=== PATIENT | female | born 1940 | race Two or more races ===

== ENCOUNTER 2017-10-18 17:23 | Inpatient (IN) | payer MEDICARE, MEDICAID ==
[~2017-10-18] VITALS: Ht 157.5 cm; Wt 52.6 kg
--- NOTE | 2017-10-18 16:30 | NUR ---
RECIEVED REPORT FROM FRED RICE NURSE. DWAYNE RECEIVED REPORT FROM ADONAY SALCEDO AT [facility]
--- NOTE | 2017-10-18 17:56 | NUR ---
PATIENT ARRIVED TO UNIT FROM AMBULANCE VIA A GORNEY AND 2 home health clinical supervisor.
--- NOTE | 2017-10-18 18:05 | NUR ---
PATIENT PLACED IN ROOM 325-1
[2017-10-18 18:15] VITALS: BP 129/61
[2017-10-18] MEDS ORDERED: PNEUMOCOCCAL 23-VAL P-SAC VAC 0.5 ML VIAL IM ONE (18:30)
--- NOTE | 2017-10-18 18:41 | NUR ---
PATIENT REFUSING PNEUMONIA VACCINE. DR LANDEROS MADE AWARE
--- NOTE | 2017-10-18 18:45 | NUR ---
RN ADMITTING / CLOSING NOTES PATIENT ARRIVED TO UNIT AT 1756. PLACED IN ROOM 325-1. DR LANDEROS MADE AWARE OF PATIENT ADMITTED TO UNIT. ADMITTING ORDERS RECEIVED. NO SIGNS AND SYMPTOMS OF DISTRESS. 95% ON ROOM AIR. VITAL SIGNS ARE STABLE. REFUSING VACCINATION. SON AT BEDSIDE HELPED WITH HISTORY AND TRANSLATION. BED IN LOW POSITION, LOCKED AND TWO SIDE RAILS ARE UP. CALL LIGHT WITHIN REACH FOR SAFETY. URINALYSIS, ECHO, EKG AND BC ORDERED AND PENDING. WILL ENDORSE TO ONCOLOGIST NURSE
[2017-10-18] MEDS: IV NS 0.9% 1,000 ML IV PRN (18:51)
[2017-10-18] MEDS: ALBUTEROL FS 2.5 MG/0.5 ML VIAL.NEB NEB SCH (19:15)
--- NOTE | 2017-10-18 19:15 | NUR ---
MS RN NOTES RT AT BEDSIDE ADMINISTERING BREATHING TX SCHEDULED
[2017-10-18] MEDS: IPRATROPIUM NEB FS 0.5 MG/2.5 ML AMPUL.NEB NEB SCH (19:16)
--- NOTE | 2017-10-18 19:30 | NUR ---
MS RN NOTES RECEIVED ON BED A/O X3,BREATHING NON LABORED,FAMILY MEMBER AT BEDSIDE.WITH IVF NS 75ML/HR RATE INFUSING VIA IV PUMP ON RIGHT AC #20.WILL CONTINUE TO MONITOR STATUS.CALL LIGHT IN REACH,NEEDS ANTICIPATED.
[2017-10-18 20:00] VITALS: BP 110/55
--- NOTE | 2017-10-18 20:00 | NUR ---
MS RN NOTES STARTED ON ROCEPHIN 1GM IVPB ORDERED.BLOOD CULTURE ALREADY DRAWN.
[2017-10-18] MEDS: CEFTRIAXONE 1 G in IV D5W 50 ML IV SCH (20:07)
[2017-10-18 20:25] LABS: THYROID STIMULATING HORMONE 0.383 uIU/mL (0.358-3.74)
[2017-10-18 20:31] LABS: ALANINE AMINOTRANSFERASE 47 U/L (12-78); ALKALINE PHOSPHATASE 79 U/L (46-116); ASPARTATE AMINOTRANSFERASE 41 U/L (15-37); B-TYPE NATRIURETIC PEPTIDE 207 PG/ML (0-125); BILIRUBIN,TOTAL 0.2 mg/dL (0.2-1.0); CALCIUM, SERUM 8.5 mg/dL (8.5-10.1); CARBON DIOXIDE 28 mmol/L (21-32); CHLORIDE 106 mmol/L (98-107); CREATININE 0.7 mg/dL (0.6-1.3); GLUCOSE 140 mg/dL (74-106); PHOSPHORUS 2.6 mg/dL (2.5-4.9); POTASSIUM 3.8 mmol/L (3.5-5.1); SODIUM SERUM 138 mmol/L (136-145); TOTAL PROTEIN, SERUM 6.4 g/dL (6.4-8.2); UREA NITROGEN, BLOOD 11 mg/dL (7-18)
[2017-10-18] MEDS: AZITHROMYCIN 500 MG in IV D5W 250 ML IV SCH (20:43)
[2017-10-18 20:46] LABS: CALCIUM, SERUM 8.5 mg/dL (8.5-10.1); CARBON DIOXIDE 27 mmol/L (21-32); CHLORIDE 106 mmol/L (98-107); CREATININE 0.7 mg/dL (0.6-1.3); GLUCOSE 140 mg/dL (74-106); POTASSIUM 3.9 mmol/L (3.5-5.1); SODIUM SERUM 138 mmol/L (136-145); UREA NITROGEN, BLOOD 11 mg/dL (7-18)
[2017-10-18 20:54] VITALS: BP 110/55
[2017-10-18] MEDS ORDERED: ACETAMINOPHEN 325 MG TABLET ONE (20:58)
[2017-10-18] MEDS: ACETAMINOPHEN 325 MG TABLET PO PRN (21:00)
[2017-10-18] MEDS ORDERED: IV NS 0.9% 1,000 ML BAG IV ONE (21:30)
[2017-10-18 22:05] LABS: BASOPHILS % (AUTO) 0.4 % (0.0-2.0); EOSINOPHILS % (AUTO) 0.1 % (0.0-6.0); HEMATOCRIT 34 % (33-45); HEMOGLOBIN 11.4 g/dL (11.5-14.8); LYMPHOCYTES # (AUTO) 1.1 /CMM (0.8-4.8); LYMPHOCYTES % (AUTO) 33.3 % (20.0-44.0); MEAN CORPUSCULAR HEMOGLOBIN 31 PG (26.0-33.0); MEAN CORPUSCULAR HGB CONC 34 g/dl (31.0-36.0); MEAN CORPUSCULAR VOLUME 92 fL (82-100); MONOCYTES # (AUTO) 0.4 /CMM (0.1-1.30); NEUTROPHILS # (AUTO) 1.8 /CMM (1.8-8.9); NEUTROPHILS % (AUTO) 54.2 % (43.0-81.0); PLATELET COUNT (AUTO) 145 /CMM (150-450); RDW COEFFICIENT OF VARIATION 13.5 (11.5-15.0); RED BLOOD CELL COUNT(AUTO) 3.68 MIL/uL (4.0-5.2); WHITE BLOOD COUNT (AUTO) 3.2 K/uL (4.3-11.0)
[2017-10-18] MEDS ORDERED: methylPREDNISolone SOD SUCC 40 MG/ML VIAL ONE (23:17)
[2017-10-18] MEDS: methylPREDNISolone SOD SUCC 125 MG/2ML VIAL IV SCH (23:38)
--- NOTE | 2017-10-18 23:45 | NUR ---
CATALYST IMPREGNATOR NOTES STARTED ON SOLU-MEDROL 40MG IV ORDERED
[2017-10-19] MEDS: IPRATROPIUM NEB FS 0.5 MG/2.5 ML AMPUL.NEB NEB SCH ×4 (01:30→19:57)
[2017-10-19] MEDS: ALBUTEROL FS 2.5 MG/0.5 ML VIAL.NEB NEB SCH ×4 (01:30→19:57)
[2017-10-19] MEDS: IV NS 0.9% 1,000 ML IV PRN (03:44)
[2017-10-19 04:00] VITALS: BP 113/56
[2017-10-19] MEDS ORDERED: methylPREDNISolone SOD SUCC 40 MG/ML VIAL ONE (05:34)
[2017-10-19] MEDS: methylPREDNISolone SOD SUCC 125 MG/2ML VIAL IV SCH ×3 (05:51→17:08)
--- NOTE | 2017-10-19 06:40 | NUR ---
LAST MODEL MAKER NOTES TELE SR 62 ON THE MONITOR.SLEPT WITH INTERVALS.FLUID CHALLENGE 1 LITER FOR SEPSIS TOLERATED WELL.REGULAR IV RATE IN PROGRESS.STILL NEED URINE SAMPLE FOR U/A.NO FALL,NO INJURY,CALL LIGHT IN REACH,NEEDS ATTENDED.WILL ENDORSE TO DAY NURSE FOR EMI.
[2017-10-19 07:09] LABS: BASOPHILS % (AUTO) 0.2 % (0.0-2.0); EOSINOPHILS % (AUTO) 0.1 % (0.0-6.0); HEMATOCRIT 35 % (33-45); HEMOGLOBIN 11.6 g/dL (11.5-14.8); LYMPHOCYTES # (AUTO) 0.5 /CMM (0.8-4.8); MEAN CORPUSCULAR HEMOGLOBIN 31 PG (26.0-33.0); MEAN CORPUSCULAR HGB CONC 34 g/dl (31.0-36.0); MEAN CORPUSCULAR VOLUME 92 fL (82-100); MONOCYTES # (AUTO) 0.1 /CMM (0.1-1.30); MONOCYTES % (AUTO) 4.6 % (2.0-12.0); NEUTROPHILS # (AUTO) 1.3 /CMM (1.8-8.9); NEUTROPHILS % (AUTO) 68.1 % (43.0-81.0); PLATELET COUNT (AUTO) 142 /CMM (150-450); RDW COEFFICIENT OF VARIATION 13.8 (11.5-15.0); RED BLOOD CELL COUNT(AUTO) 3.79 MIL/uL (4.0-5.2)
--- NOTE | 2017-10-19 07:20 | NUR ---
RN OPEN NOTES RECEIVED REPORT FROM PRESSER MACHINE NURSE. PATIENT IS IN BED, AWAKE. PATIENT IS ALERT AND ORIENTED TO NAME, PLACE AND TIME. FARSI SPEAKING. LITTLE TURKISH. NO SIGNS AND SYMPTOMS OF DISTRESS. BED IN LOW POSITION, LOCKED AND TWO SIDE RAILS ARE UP. CALL LIGHT WITHIN REACH FOR SAFETY. WILL CONTINUE TO ASSESS AND MONITOR PATIENT THROUGH OUT MY SHIFT
[2017-10-19 07:30] LABS: CALCIUM, SERUM 8.6 mg/dL (8.5-10.1); CARBON DIOXIDE 25 mmol/L (21-32); CHLORIDE 108 mmol/L (98-107); CREATININE 0.7 mg/dL (0.6-1.3); GLUCOSE 134 mg/dL (74-106); MAGNESIUM 2.2 mg/dL (1.8-2.4); PHOSPHORUS 3.7 mg/dL (2.5-4.9); POTASSIUM 4.2 mmol/L (3.5-5.1); SODIUM SERUM 140 mmol/L (136-145); UREA NITROGEN, BLOOD 9 mg/dL (7-18)
[2017-10-19 07:38] LABS: ALBUMIN 2.9 g/dL (3.4-5.0); BILIRUBIN,TOTAL 0.2 mg/dL (0.2-1.0); TOTAL PROTEIN, SERUM 6.5 g/dL (6.4-8.2)
[2017-10-19 07:48] LABS: WHITE BLOOD COUNT (AUTO) 1.9 K/uL (4.3-11.0)
--- NOTE | 2017-10-19 07:52 | NUR ---
CRITICAL LAB VALUE REPORTED BY LAB. WBC OF 1.9. PATIENT PLACED ON NEUTROPENIC ISOLATION AND DR LANDEROS NOTIFIED
[2017-10-19 08:00] VITALS: BP 118/50
--- NOTE | 2017-10-19 08:10 | NUR ---
PATIENT PLACED ON DROPLET PRECAUTION DUE TO 1.9 WBC
[2017-10-19] MEDS: ENOXAPARIN SODIUM 40 MG/0.4 ML DISP.SYRIN SQ SCH (09:08)
[2017-10-19 09:25] LABS: BAND % (MANUAL) 5 % (0.0-5.0); LYMPHOCYTES % (MANUAL) 16 % (16-48); MONOCYTES % (MANUAL) 2 % (0-11.0); NEUTROPHILS % (MANUAL) 77 (42-76)
[2017-10-19 10:21] LABS: APPEARANCE,URINE CLEAR (CLEAR); BILIRUBIN,URINE NEGATIVE (NEGATIVE); BLOOD, URINE NEGATIVE Ery/uL (NEGATIVE); COLOR,URINE YELLOW (YELLOW); KETONES,URINE TRACE (NEGATIVE); LEUKOCYTE ESTERASE ,URINE NEGATIVE (NEGATIVE); NITRITE, URINE NEGATIVE (NEGATIVE); PH,URINE 5.5 (5.0-8.0); PROTEIN,URINE NEGATIVE (NEGATIVE); UGLUCOSE NEGATIVE (NEGATIVE); UROBILINOGEN,URINE 0.2 EU/dL (0.2)
[2017-10-19 10:31] LABS: BACTERIA,URINE Rare /HPF (None Seen); RBC,URINE 0-2 /HPF (0-2); SQUAMOUS EPITHELIAL CELL,UR Rare /HPF (None Seen); WBC,URINE 0-2 /HPF (0-3)
[2017-10-19] MEDS ORDERED: OSELTAMIVIR PHOSPHATE 75 MG CAPSULE PO SCH (17:00)
[2017-10-19] MEDS: LACTOBACILLUS RHAMNOSUS GG 1 EACH CAP.SPRINK PO SCH (17:08)
--- NOTE | 2017-10-19 17:15 | NUR ---
DR RAMON AT BEDSIDE
--- NOTE | 2017-10-19 18:43 | NUR ---
RN CLOSING NOTES PATIENT IS IN BED. ALERT AND ORIENTED TO NAME, PLACE AND TIME. FARSI PEAKER. NO SIGNS AND SYMPTOMS OF DISTRESS. DENIED PAIN. IV SITE IS INTACT AND PATENT. ALL NURSING CARE ANTICIPATED AND MET. PATIENT KEPT SAFE AND CLEAN. BED IN LOW POSITION, LOCKED AND TWO SIDE RAILS ARE UP. CALL LIGHT WITHIN REACH FOR SAFETY. PENDING RAPID INFLUENZA RESULT PRIOR TO ADMINISTER TAMIFLU. WILL ENDORSE TO OIL DEVELOPER NURSE
--- NOTE | 2017-10-19 18:55 | NUR ---
PHARMACY CALLED. RAPID INFLUENZA RESULTED. TAMIFLU HELD DUE TO NEGATIVE RESULT
[2017-10-19] MEDS: CEFTRIAXONE 1 G in IV D5W 50 ML IV SCH (19:40)
[2017-10-19 20:00] VITALS: BP 118/63
--- NOTE | 2017-10-19 20:00 | NUR ---
RN NOTES PATIENT UP ON CHAIR, ALERT AND ORIENTED X3, FARSI SPEAKING, UNDERSTANDS LITTLE [place]. NO SOB, NO RESPIRATORY DISTRESS, TOLERATING ROOM AIR, SPO2 95%, DENIES ANY PAIN AT THIS TIME, NO REVERSE ISOLATION SECONDARY TO NEUTROPENIA, CONTINENT OF BOWEL AND BLADDER, ABLE TO AMBULATE INDEPENDENTLY TO THE TOILET. NEEDS ATTENDED, CALL LIGHT WITHIN REACH.
[2017-10-19] MEDS: AZITHROMYCIN 500 MG in IV D5W 250 ML IV SCH (20:11)
[2017-10-19 23:01] LABS: ABG BASE EXCESS -1.3 mmol/L; ABG OXYGEN SATURATION 95.1 % (92.0-98.5); ABG PCO2 36.4 mmHg (35.0-45.0); ABG PH 7.415 (7.350-7.450); AaDO2 32.1 mmHg; COHb 0.3 % (0.5-1.5); MetHb 0.6 % (0.0-1.5); O2Hb 94.2 % (94.0-97.0); SITE, ABG Left Brachial; VENT MODE, BG RA
[2017-10-20] MEDS: methylPREDNISolone SOD SUCC 125 MG/2ML VIAL IV SCH ×4 (00:21→17:10)
[2017-10-20] MEDS: IPRATROPIUM NEB FS 0.5 MG/2.5 ML AMPUL.NEB NEB SCH ×2 (01:30→08:55)
[2017-10-20] MEDS: ALBUTEROL FS 2.5 MG/0.5 ML VIAL.NEB NEB SCH ×2 (01:30→08:56)
[2017-10-20] MEDS: IV NS 0.9% 1,000 ML IV PRN ×2 (05:07→21:06)
--- NOTE | 2017-10-20 06:44 | NUR ---
RN NOTES PATIENT IN BED, ALERT AND AWAKE, NO SOB, NO DISTRESS, COMPLIANT WITH MEDICATION. STEADY GAIT, ALL NEEDS ATTENDED, CALL LIGHT WITHIN REACH.
--- NOTE | 2017-10-20 07:45 | NUR ---
RN OPENING NOTES RECEIVED PT. A/O X 3, PT IS IN BED RESTING. NO S/S OF SOB. PT HAS C/O MILD PAIN 2/10, REQUESTING PRN TYLENOL. PT IS ON RA, O2SAT WNL. PER PAROLE DIRECTOR REPORT PT NOT DETECTED INFLUENZA A OR B, HOWEVER TAMIFLU IS ORDERED. IV ACCESS LOCATED ON RIGHT AC 20 G INFUSING NS AT 75 ML/HR. SAFETY MEASURES IN PLACE, CALL LIGHT WITHIN REACH. WILL CONTINUE TO MONITOR.
[2017-10-20 08:00] VITALS: BP 104/60
[2017-10-20] MEDS: LACTOBACILLUS RHAMNOSUS GG 1 EACH CAP.SPRINK PO SCH ×2 (08:38→17:10)
[2017-10-20] MEDS: ACETAMINOPHEN 325 MG TABLET PO PRN (08:38)
[2017-10-20] MEDS: ENOXAPARIN SODIUM 40 MG/0.4 ML DISP.SYRIN SQ SCH (08:42)
[2017-10-20] MEDS: OSELTAMIVIR PHOSPHATE 75 MG CAPSULE PO SCH (09:38)
[2017-10-20 16:00] VITALS: BP 111/56
--- NOTE | 2017-10-20 18:39 | NUR ---
RN CLOSING NOTES PT IS IN BED RESTING. NO S/S OF SOB OR RESPIRATORY DISTRESS. NO C/O PAIN AT THIS TIME. ALL PT NEEDS ANTICIPATED AND MET. SAFETY MEASURES IN PLACE. CALL LIGHT WITHIN REACH. WILL ENDORSE TO RN INTERNAL MEDICINE FOR EMI.
--- NOTE | 2017-10-20 19:30 | NUR ---
RN NOTE; RECEIVED PT IN BED AWAKE AND ALERT. BREATHING EVENLY. NO SOB. NAD. SKIN WARM AND DRY. W/ INTERMITTENT DRY COUGH . NO C/O PAIN RO DISCOMFORT. AFEBRILE. NEEDS ATTENDED .BED LOW LOCKED .CALL LIGHT WITHIN REACH. WILL CONT TO MONITOR,
[2017-10-20] MEDS: CEFTRIAXONE 1 G in IV D5W 50 ML IV SCH (19:58)
[2017-10-20 20:00] VITALS: BP 119/70
[2017-10-20] MEDS: AZITHROMYCIN 500 MG in IV D5W 250 ML IV SCH (21:03)
[2017-10-21] MEDS: methylPREDNISolone SOD SUCC 125 MG/2ML VIAL IV SCH ×3 (00:22→12:48)
--- NOTE | 2017-10-21 06:24 | NUR ---
PT IN BED AWAKE AND ALERT. POOR NIGHT SLEEP. BREATHING EVENLY. NO SOB. NO ACUTE DISTRESS. W/ INTERMITTENT DRY COUGH. NO C/O PAIN OR DISCOMFORT , ALL NEED ATTENDED. ASSISTED W/ ADLS. CALL LIGHT WITHIN REACH. WILL CONT TO MONITOR AND WILL ENDORSE TO AM SHIFT FOR EMI.
[2017-10-21 07:10] LABS: BILIRUBIN,TOTAL 0.2 mg/dL (0.2-1.0); TOTAL PROTEIN, SERUM 6.6 g/dL (6.4-8.2)
[2017-10-21 07:27] LABS: CALCIUM, SERUM 8.8 mg/dL (8.5-10.1); CARBON DIOXIDE 26 mmol/L (21-32); CHLORIDE 107 mmol/L (98-107); CREATININE 0.7 mg/dL (0.6-1.3); GLUCOSE 130 mg/dL (74-106); MAGNESIUM 2.3 mg/dL (1.8-2.4); PHOSPHORUS 2.9 mg/dL (2.5-4.9); POTASSIUM 4.3 mmol/L (3.5-5.1); SODIUM SERUM 141 mmol/L (136-145); UREA NITROGEN, BLOOD 16 mg/dL (7-18)
--- NOTE | 2017-10-21 07:30 | NUR ---
MS/RN PATIENT RECEIVED PATIENT RCEIVED IN BED AWAKE. ALERT AND ORIENTED TO PERSON, PLACE AND SITUATION. FARSI IS THE FIRST LANGUAGE BUT THE PATIENT IS ABLE TO COMMUNICATE IN [place] TOO. RESPIRATION REGULAR AND UNLABORED. DENIES SOB. NO COUGH AT THIS TIME. DENIES PAIN AT THIS TIME. REMAINS ON REVERSE ISOLATION FOR NEUTROPENIA. SIDE RAIL X2 IN UPRIGHT POSITION. BED LOW AND LOCKED. CALL LIGHT WITHIN REACH. WILL CONTINUE TO MONITOR.
[2017-10-21 07:34] LABS: THYROID STIMULATING HORMONE 0.519 uIU/mL (0.358-3.74)
[2017-10-21] MEDS ORDERED: IPRATROPIUM NEB FS 0.5 MG/2.5 ML AMPUL.NEB NEB PRN (07:35)
[2017-10-21] MEDS ORDERED: ALBUTEROL FS 2.5 MG/0.5 ML VIAL.NEB NEB PRN (07:35)
[2017-10-21 07:45] LABS: HEMATOCRIT 35 % (33-45); HEMOGLOBIN 11.9 g/dL (11.5-14.8); LYMPHOCYTES # (AUTO) 0.6 /CMM (0.8-4.8); MEAN CORPUSCULAR HEMOGLOBIN 31 PG (26.0-33.0); MEAN CORPUSCULAR HGB CONC 34 g/dl (31.0-36.0); MEAN CORPUSCULAR VOLUME 92 fL (82-100); MONOCYTES # (AUTO) 0.1 /CMM (0.1-1.30); MONOCYTES % (AUTO) 1.9 % (2.0-12.0); NEUTROPHILS # (AUTO) 7.2 /CMM (1.8-8.9); NEUTROPHILS % (AUTO) 91.1 % (43.0-81.0); PLATELET COUNT (AUTO) 169 /CMM (150-450); RDW COEFFICIENT OF VARIATION 13.5 (11.5-15.0); RED BLOOD CELL COUNT(AUTO) 3.79 MIL/uL (4.0-5.2); WHITE BLOOD COUNT (AUTO) 7.9 K/uL (4.3-11.0)
[2017-10-21 08:00] VITALS: BP_SYST 120; BP_SYST 121; BP_DIAS 68; BP_DIAS 80
[2017-10-21] MEDS: LACTOBACILLUS RHAMNOSUS GG 1 EACH CAP.SPRINK PO SCH ×2 (08:46→17:38)
[2017-10-21] MEDS: OSELTAMIVIR PHOSPHATE 75 MG CAPSULE PO SCH (08:46)
[2017-10-21] MEDS: ENOXAPARIN SODIUM 40 MG/0.4 ML DISP.SYRIN SQ SCH (08:47)
--- NOTE | 2017-10-21 09:00 | NUR ---
MS/RN MEDS GIVEN DUE MEDICATIONS GIVEN ORDERED AND NO ASE NOTED. THE PATIENT IN STABLE CONDITION.
--- NOTE | 2017-10-21 10:00 | NUR ---
SPOKE TO LUIS E BROWN NP AND MENTIONED ABOUT PT'S WBC LEVEL IMPROVING FROM 1.9 10/19 TO TODAYS 7.9 LEVEL WITH ORDERS TO DC THE REVERSE ISOLATION PRECAUTIONS.
[2017-10-21 16:00] VITALS: BP 124/77
--- NOTE | 2017-10-21 18:30 | NUR ---
MS/RN CLOSING NOTE PATIENT IN BED AND AWAKE. ALERT AND ORIENTED X3. RESPIRATION REGULAR AND UNLABORED. DENIES SOB, PAIN AT THIS TIME. IN NO APPARENT DISTRESS. BED LOW AND LOCKED. CALL LIGHT WITHIN REACH. ENCOURAGED TO PRESS THE CALL LIGHT FOR ASSISTANCE. WILL ENDORSE TO GREENSKEEPER LABORER.
--- NOTE | 2017-10-21 19:30 | NUR ---
MS RN OPENING NOTES RECEIVED PT IN BED ALERT,AWAKE,VERBALLY RESPONSIVE,ON ROOM AIR, RESPIRATIONS EVEN,UNLABORED,NO RESPIRATORY DISTRESS NOTED.DENIES ANY PAIN OR DISCOMFORT AT THIS TIME. IV SITE RT AC INTACT,PATENT,NO S/SX OF INFILTRATION NOTED. CALL LIGHT WITHIN REACH. KEPT CLEAN AND COMFORTABLE, ATTENDED ALL PT NEEDS.WILL CONTINUE TO MONITOR ACCORDINGLY.
[2017-10-21 20:00] VITALS: BP 105/57
[2017-10-21] MEDS: CEFTRIAXONE 1 G in IV D5W 50 ML IV SCH (20:05)
[2017-10-21] MEDS: AZITHROMYCIN 250 MG TABLET PO SCH (20:27)
--- NOTE | 2017-10-22 06:27 | NUR ---
MS RN CLOSING NOTES PT IN BED AWAKE, ALERT,VERBALLY RESPONSIVE, ON ROOM AIR,NO RESPIRATORY DISTRESS NOTED. DENIES ANY PAIN OR DISCOMFORT AT THIS TIME.KEPT CLEAN AND COMFORTABLE.CALL LIGHT WITHIN REACH. WILL CONTINUE TO MONOTOR ACCORDINGLY
[2017-10-22] MEDS: IV NS 0.9% 1,000 ML IV PRN (06:33)
[2017-10-22 07:10] LABS: IMMUNOGLOBULIN A, SERUM 298 mg/dL (64-422); IMMUNOGLOBULIN G, SERUM 977 mg/dL (700-1600); IMMUNOGLOBULIN M, SERUM 71 mg/dL (26-217)
--- NOTE | 2017-10-22 07:30 | NUR ---
MS/RN OPENING NOTE PATIENT RECEIVED IN BED AWAKE. ALERT AND ORIENTED X3. DENIES PAIN, SOB AT THIS TIME. RESPIRATION REGULAR AND UNLABORED. IN NO APPARENT DISTRESS. RAC G20 PATENT. NO S/SX INFILTRATION NOTED. SIDE RAIL X2 IN UPRIGHT POSITION. BED LOW AND LOCKED. CALL LIGHT WITHIN REACH. WILL CONTINUE TO MONITOR.
[2017-10-22 08:00] VITALS: BP 135/79
[2017-10-22] MEDS: predniSONE 20 MG TABLET PO SCH (09:00)
[2017-10-22] MEDS: LACTOBACILLUS RHAMNOSUS GG 1 EACH CAP.SPRINK PO SCH ×2 (09:00→16:44)
[2017-10-22] MEDS: OSELTAMIVIR PHOSPHATE 75 MG CAPSULE PO SCH (09:00)
--- NOTE | 2017-10-22 09:00 | NUR ---
MS/RN MEDS HELD 9:00 AM PO MEDICATIONS ARE HELD DUE TO PATIENT NPO FOR DIAGNOSIS. PATIENT IN STABLE CONDITION. RESPIRATION REGULAR AND UNLABORED. DENIES PAIN. DENIES SOB.
[2017-10-22] MEDS: ENOXAPARIN SODIUM 40 MG/0.4 ML DISP.SYRIN SQ SCH (09:22)
[2017-10-22 11:09] LABS: *SPE A/G RATIO 1.2 (0.7-1.7); *SPE ALBUMIN 3.2 g/dL (2.9-4.4); *SPE ALPHA-1-GLOBULIN 0.2 g/dL (0.0-0.4); *SPE ALPHA-2-GLOBULIN 0.7 g/dL (0.4-1.0); *SPE BETA GLOBULIN 0.7 g/dL (0.7-1.3); *SPE GLOBULIN, TOTAL 2.7 g/dL (2.2-3.9); *SPE M-SPIKE Not Observed g/dL (Not Observed)
[2017-10-22 11:13] VITALS: BP 135/79
--- NOTE | 2017-10-22 11:38 | NUR ---
PT REFUSED BLOOD DRAW AFTER 3 ATTEMPTS INSPITE OF EXPLAINING ITS RISKS AND BENEFITS.PT INSISTS TO REFUSE.
--- NOTE | 2017-10-22 12:00 | NUR ---
PT WENT DOWN FOR NM HIDA SCAN PROCEDURE WITH STABLE V/S.PT HAS BEEN ON NPO SINCE 12 MIDNIGHT.
--- NOTE | 2017-10-22 13:40 | NUR ---
NM: HIDA SCAN WAS COMPLETED. TECH:RB.
[2017-10-22 16:00] VITALS: BP 98/57
--- NOTE | 2017-10-22 18:48 | NUR ---
MS/RN CLOSING NOTE PATIENT ALERT AND ORIENTED X3. DENIES SOB, DENIES PAIN. IN NO APPARENT DISTRESS. RESPIRATION REGULAR AND UNLABORED. BED LOW AND LOCKED. SIDE RAIL UP X2. CALL LIGHT WITHIN REACH. WILL ENDORSE TO FURNACE INSTALLER.
--- NOTE | 2017-10-22 19:00 | NUR ---
MS/RN NOTE PATIENT HAS BEEN REFUSING IV FLUIDS UNTIL 1800. EXPLAINED RISKS AND BENEFITS BUT STILL REFUSED.
--- NOTE | 2017-10-22 19:40 | NUR ---
MS RN OPENING NOTES PT IN BED, ALERT,AWAKE,VERBALLY RESPONSIVE,ON ROOM AIR,NO RESPIRATORY DISTRESS,NO SOB NOTED. DENIES ANY PAIN OR DISCOMFORT AT THIS TIME.IV SITE INTACT,PATENT.PT REFUSED BLOOD DRAW, OFFERED X3 EXPLAINED BENEFITS,STILL REFUSING.CALL LIGHT WITHIN REACH.KEPT CLEAN AND COMFORTABLE.ATTENDED ALL NEEDS.WILL CONTINUE TO MONITOR ACCORDINGLY
[2017-10-22 20:00] VITALS: BP 104/54
[2017-10-22] MEDS: CEFTRIAXONE 1 G in IV D5W 50 ML IV SCH (20:48)
[2017-10-22] MEDS: ACETAMINOPHEN 325 MG TABLET PO PRN (21:03)
[2017-10-22] MEDS: AZITHROMYCIN 250 MG TABLET PO SCH (21:04)
--- NOTE | 2017-10-23 06:27 | NUR ---
MS RN CLOSING NOTES PT IN BED AWAKE, ALERT,VERBALLY RESPONSIVE,ON ROOM AIR, NO SOB, NO APPARENT DISTRESS NOTED.DENIES ANY PAIN OR DISCOMFORT AT THIS TIME. IV SITE INTACT,PATENT.CALL LIGHT WITHIN REACH.KEPT CLEAN AND COMFORTABLE.ATTENDED ALL NEEDS.
--- NOTE | 2017-10-23 07:00 | NUR ---
MS/RN OPENING NOTE PATIENT RECEIVED IN BED AWAKE. ALERT AND ORIENTATED X3. DENIES SOB, DENIES PAIN. OCCASIONAL NON-PRODUCTIVE COUGH NOTED. RESPIRATION REGULAR AND UNLABORED. DENIES SOB, PAIN. IN NO DISTRESS. DEEP BREATHING, TURNING AND REPOSITIONING ENCOURAGED. RAC G20 PATENT AND IV INFUSING WELL. SIDE RAIL X2 UP. BED LOCKED AND LOWEST POSITION. CALL LIGHT WITHIN REACH. WILL CONTINUE TO MONITOR.
[2017-10-23 08:00] VITALS: BP 109/60
[2017-10-23] MEDS: predniSONE 20 MG TABLET PO SCH (08:37)
[2017-10-23] MEDS: OSELTAMIVIR PHOSPHATE 75 MG CAPSULE PO SCH (08:37)
[2017-10-23] MEDS: LACTOBACILLUS RHAMNOSUS GG 1 EACH CAP.SPRINK PO SCH (08:37)
[2017-10-23] MEDS: ENOXAPARIN SODIUM 40 MG/0.4 ML DISP.SYRIN SQ SCH (08:38)
--- NOTE | 2017-10-23 08:51 | NUR ---
MS/RN MEDS GIVEN DUE MEDICATIONS GIVEN ORDERED. NO ASE NOTED. WAITING TO BE TAKEN FOR FOR CT CHEST WITHOUT CONTRAST.
[2017-10-23 09:18] VITALS: BP 143/66
[2017-10-23 09:53] LABS: BASOPHILS % (AUTO) 0.3 % (0.0-2.0); EOSINOPHILS % (AUTO) 0.3 % (0.0-6.0); HEMATOCRIT 34 % (33-45); HEMOGLOBIN 11.6 g/dL (11.5-14.8); LYMPHOCYTES # (AUTO) 2.5 /CMM (0.8-4.8); MEAN CORPUSCULAR HEMOGLOBIN 31 PG (26.0-33.0); MEAN CORPUSCULAR HGB CONC 34 g/dl (31.0-36.0); MEAN CORPUSCULAR VOLUME 92 fL (82-100); MONOCYTES # (AUTO) 0.3 /CMM (0.1-1.30); MONOCYTES % (AUTO) 4.9 % (2.0-12.0); NEUTROPHILS # (AUTO) 3.6 /CMM (1.8-8.9); NEUTROPHILS % (AUTO) 55.5 % (43.0-81.0); PLATELET COUNT (AUTO) 181 /CMM (150-450); RDW COEFFICIENT OF VARIATION 13.1 (11.5-15.0); RED BLOOD CELL COUNT(AUTO) 3.75 MIL/uL (4.0-5.2); WHITE BLOOD COUNT (AUTO) 6.5 K/uL (4.3-11.0)
[2017-10-23 10:08] LABS: ALANINE AMINOTRANSFERASE 68 U/L (12-78); ALBUMIN 2.8 g/dL (3.4-5.0); ALKALINE PHOSPHATASE 72 U/L (46-116); ASPARTATE AMINOTRANSFERASE 37 U/L (15-37); BILIRUBIN,DIRECT 0.1 mg/dL (0.0-0.2); BILIRUBIN,TOTAL 0.3 mg/dL (0.2-1.0); CALCIUM, SERUM 8.5 mg/dL (8.5-10.1); CARBON DIOXIDE 29 mmol/L (21-32); CHLORIDE 107 mmol/L (98-107); CREATININE 0.9 mg/dL (0.6-1.3); GLUCOSE 110 mg/dL (74-106); POTASSIUM 3.6 mmol/L (3.5-5.1); SODIUM SERUM 142 mmol/L (136-145); TOTAL PROTEIN, SERUM 6.2 g/dL (6.4-8.2); UREA NITROGEN, BLOOD 13 mg/dL (7-18)
--- NOTE | 2017-10-23 10:30 | NUR ---
MS/RN IV FLUIDS PATIENT REFUSED ORDERED IV FLUIDS FROM 9711-0827. IV RESTARTED AT 1030. NO S/SX INFILTRATION NOTED.
[2017-10-23] MEDS ORDERED: OSEL75CA PO (15:08)
[2017-10-23] MEDS ORDERED: AZIT250T PO (15:08)
[2017-10-23 16:00] VITALS: BP 135/75
--- NOTE | 2017-10-23 17:00 | NUR ---
DISCHARGED PT HOME WITH HOME HEALTH FOLLOW UP WITH [facility] FOR P.T. IV H/L REMOVED TO RT AC WITHOUT BLEEDING NOTED.DENIES ANY PAIN OR DISTRESS WITH STABLE V/S.DISCHARGE AND PT TEACHING INSTRUCTIONS GIVEN TO THE PT.PRESCRIPTIONS FAXED TO [facility] IN [place] PHONE [phone], FAX NO [phone] AND CONFIRMED RECEIVED BY THE PHARMACIST.
== END 2017-10-23 17:03 | disposition home health service (06) | DRG 871 ==
LOC: MED 17:27 → TELE 10-19 01:22 → MED 10-19 09:37
PROVIDERS: ADMIT Internal Medicine; ATTEND Internal Medicine
DX: A41.9 Sepsis, unspecified organism (principal); J15.9 Unspecified bacterial pneumonia; D61.818 Other pancytopenia; K80.00 Calculus of gallbladder with acute cholecystitis without obstruction; K76.0 Fatty (change of) liver, not elsewhere classified; J44.0 Chronic obstructive pulmonary disease with (acute) lower respiratory infection; J44.1 Chronic obstructive pulmonary disease with (acute) exacerbation; R74.0 Nonspecific elevation of levels of transaminase and lactic acid dehydrogenase [LDH]; J11.1 Influenza due to unidentified influenza virus with other respiratory manifestations; I70.0 Atherosclerosis of aorta; E53.8 Deficiency of other specified B group vitamins; E04.2 Nontoxic multinodular goiter
CPT/HCPCS: 36415; 36600; 71010-TC; 71250-TC; 76700-TC; 78226; 80048-TC; 80076-TC; 81000-TC; 82728-TC; 82746; 82784; 83540-TC; 83605-TC; 83690-TC; 83735-TC; 83880; 84100-TC; 84155; 84165; 84443-TC; 85025-TC; 86334; 87040-TC; 87081-TC; 87400; 93307-TC; A9537; J0456; J0696; J1650; J2920; J2930; J7030; J7060; Z7610